=== PATIENT | female | born 1980 | race Two or more races ===

== ENCOUNTER 2018-12-24 16:10 | Emergency (ER) | payer OTHER ==
[~2018-12-24] VITALS: Ht 162.6 cm; Wt 69.4 kg
[2018-12-24 16:23] VITALS: BP 115/74
== END 2018-12-24 17:41 | disposition home or self-care (01) ==
LOC: ER 16:10
DX: J20.9 Acute bronchitis, unspecified (principal)
CPT/HCPCS: 71045-TC